=== PATIENT | male | born 1930 | race Caucasian/White ===

== ENCOUNTER → 2017-02-18 | Outpatient (CLI) | payer OTHER ==
[2017-02-18 07:44] LABS: Blood Urea Nitrogen 18 mg/dL (9-20); Non-African American GFR(MDRD) >60 (>60 ml/min/1.73 sqM)
--- NOTE | 2017-02-18 09:12 | CT ---
EXAMINATION TYPE: CT abdomen w con DATE OF EXAM: 02/18/2017 COMPARISON: NONE HISTORY: Generalized abdominal pain CT DLP: 744 mGycm, Automated Exposure Control for Dose Reduction was Utilized. CONTRAST: CT scan of the abdomen and pelvis is performed with oral and with IV Contrast, patient injected with 100 ml mL of Omnipaque 300. FINDINGS: LUNG BASES: Reticular interstitial changes bilaterally favor mild basilar fibrosis over interstitial edema. There is 6 mm calcified nodule or granuloma in the left lower lobe on axial image 4. Heart siz e is upper limits of normal. Calcifications at mitral valve are present. LIVER/GB: No significant abnormality is appreciated. PANCREAS: No significant abnormality is seen. SPLEEN: No significant abnormality is seen. ADRENALS: No significant abnormality is seen. KIDNEYS: There is 1.6 cm simple appearing exophytic cyst laterally mid pole level left kidney. There are central simple appearing parapelvic cysts in left kidney. 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 BOWEL: Oral contrast is seen throughout small and large bowel loops. There is no suspicious small or large bowel dilatation. There are scattered diverticula scattered throughout the colon most pronounce d in the visualized left colon. There is no convincing evidence of acute diverticulitis. LYMPH NODES: No greater than 1cm abdominal lymph nodes nodes are appreciated. OSSEOUS STRUCTURES: No significant abnormality is seen. OTHER: Multilevel spurring in the spine is present. There is vacuum disc phenomenon with disc space n arrowing and spurring L4-L5 level. Multilevel vacuum disc phenomenon and disc space narrowing is pres ent. Facet arthropathy contributes to multilevel disc space narrowing. Multilevel spinous process hyp ertrophy is seen with subchondral cystic change at articulations. cannot be excluded. IMPRESSION: 1. No bowel obstruction is seen. Colonic diverticulosis without CT evidence for acute diverticulitis. No significant acute finding is seen to account for patient's symptoms. 2. 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 Complete duplication is not excluded. 3. Other chronic findings as detailed above, Baastrup's disease cannot be excluded.
== END ==
LOC: RADCTMAIN 06:48
PROVIDERS: ATTEND Family Medicine
DX: R10.84 Generalized abdominal pain (principal)
CPT/HCPCS: 82565; 84520; 74160; 36415; Q9967

== ENCOUNTER → 2017-03-22 | Outpatient (CLI) | payer MEDICARE ==
--- NOTE | 2017-03-22 11:44 | FL ---
EXAMINATION TYPE: FL barium swallow w video DATE OF EXAM: 03/22/2017 COMPARISON: NONE HISTORY: Food getting stuck, dysphasia TECHNIQUE: Fluoroscopy. FINDINGS: Fluoroscopic guidance was provided for the procedure performed in conjunction with the [facility] pathology department. Please see complete report forthcoming from the Speech Pathology departmen t. Various consistencies from thin liquid to solids were administered. Fluoroscopy time 2.2 minutes. Number of images: 0. No aspiration or penetration was evident. No significant pooling was observed in the vallecula. There was normal propulsion of the bolus. Limited esophagus visualization with thin liquids was performed with real-time observation. 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 Obvious stenosis is not evident. This portion of the examination i s limited. IMPRESSION: 1. Normal modified barium swallow. 2. Findings suggestive for presbyesophagus. Complete esophagram can be performed at the referring y sician's request.
== END | disposition home or self-care (01) ==
LOC: RADFLMAIN 10:41
PROVIDERS: ATTEND Internal Medicine
DX: R13.10 Dysphagia, unspecified (principal)
CPT/HCPCS: 74230

== ENCOUNTER → 2017-04-18 | Outpatient (CLI) | payer MEDICARE, OTHER ==
[2017-04-18 15:48] LABS: ALT 27 U/L (21-72); AST 27 U/L (17-59); Alkaline Phosphatase 70 U/L (38-126); Anion Gap 6 mmol/L; Blood Urea Nitrogen 24 mg/dL (9-20); Calcium 9.2 mg/dL (8.4-10.2); Carbon Dioxide 27 mmol/L (22-30); Chloride 104 mmol/L (98-107); Glucose 142 mg/dL (74-99); Non-African American GFR(MDRD) >60 (>60 ml/min/1.73 sqM); Potassium 4.2 mmol/L (3.5-5.1); Sodium 137 mmol/L (137-145); Total Bilirubin 0.5 mg/dL (0.2-1.3); Total Protein 6.2 g/dL (6.3-8.2)
== END | disposition home or self-care (01) ==
LOC: LABWHC1 14:51
PROVIDERS: ATTEND Internal Medicine Interventional Cardiology
DX: R06.02 Shortness of breath (principal); I35.0 Nonrheumatic aortic (valve) stenosis
CPT/HCPCS: 36415; 80053; 83880

== ENCOUNTER → 2018-03-17 | Outpatient (CLI) | payer MEDICARE ==
--- NOTE | 2018-03-17 08:20 | CT ---
EXAMINATION TYPE: CT abdomen w con DATE OF EXAM: 03/17/2018 COMPARISON: 02/18/2017 HISTORY: Epigastric pain CT DLP: 433.40 mGycm Automated exposure control for dose reduction was used. TECHNIQUE: Helical acquisition of images was performed from the lung bases through the top of iliac crest to include entire abdomen. CONTRAST: Performed with Oral Contrast and with IV Contrast, patient injected with 100 ml mL of Isovue 300. FINDINGS: LUNG BASES: Stable basilar fibrosis and granulomatous disease. Focal infiltrate medial segment right middle lobe. Small right-sided pleural effusion identified. LIVER/GB: No significant abnormality is appreciated. PANCREAS: No significant abnormality is seen. SPLEEN: No significant abnormality is seen. ADRENALS: No significant abnormality is seen. KIDNEYS: Partially duplicated left renal collecting system. No evidence for hydronephrosis or nephrol ithiasis. No distinct renal mass appreciated. BOWEL: Small sliding-type hiatal hernia detected. Wall thickening gastric fundal region. Consider di rect visualization if felt indicated. Remainder of the gastrointestinal tract as visualized appears t o be of normal caliber. No inflammatory process seen. LYMPH NODES: No significant abnormality is seen. OSSEOUS STRUCTURES: Degenerative changes lumbar spine. FREE AIR: No free air is visualized. OTHER: IMPRESSION: 1. Possible wall thickening at the GE junction/gastric fundus. This could be related to poor distenti on versus retained debris however infiltrative process is difficult to exclude. Consider direct visua lization if felt clinically indicated. 2. Small sliding-type hiatal hernia. 3. Basilar fibrosis. Infiltrate right middle lobe medial segment. Small right-sided pleural effusion.
== END | disposition home or self-care (01) ==
LOC: RADCTMAIN 06:23
PROVIDERS: ATTEND Surgery
DX: K44.9 Diaphragmatic hernia without obstruction or gangrene (principal)
CPT/HCPCS: 82565; 84520; 74160; 36415; Q9967

== ENCOUNTER → 2018-12-08 | Outpatient (CLI) | payer MEDICARE ==
[2018-12-08 10:23] LABS: HCT 41.5 % (39.0-53.0); MCH 31.8 pg (25.0-35.0); MCHC 33.7 g/dL (31.0-37.0); MCV 94.5 fL (80.0-100.0); Mean Platelet Volume 7.2; Platelet Count 235 k/uL (150-450); RBC 4.39 m/uL (4.30-5.90); RDW 13.1 % (11.5-15.5); WBC 8.5 k/uL (3.8-10.6)
[2018-12-08 17:30] LABS: Albumin 3.9 g/dL (3.80-4.90); Albumin/Globulin Ratio 1.95 (1.60-3.17); Anion Gap 5.7 mmol/L (4.00-12.00); Calcium 9.1 mg/dL (8.7-10.3); Carbon Dioxide 27.3 mmol/L (21.6-31.8); Potassium 4.9 mmol/L (3.5-5.5); Total Bilirubin 0.6 mg/dL (0.2-1.2); Total Protein 5.9 g/dL (6.2-8.2)
== END | disposition home or self-care (01) ==
LOC: LABWHC1 09:38
PROVIDERS: ATTEND Nurse Practitioner Adult Health
DX: I35.0 Nonrheumatic aortic (valve) stenosis (principal); R06.02 Shortness of breath
CPT/HCPCS: 36415; 80053; 83880; 85027

== ENCOUNTER 2019-08-10 06:30 | Day surgery (SDC) | payer MEDICARE ==
[2019-08-10] MEDS ORDERED: LIDOCAINE 1% 20 ML VIAL (10MG/ML) FOR IV START INTRADERMA ONE (08:37)
[2019-08-10] MEDS ORDERED: LACTATED RINGERS 1,000 ML IV ONE (08:37)
[2019-08-10 08:40] VITALS: TEMP 97.3
[2019-08-10] MEDS ORDERED: ONDANSETRON 4 MG/2 ML VIAL IVP ONE (08:46)
[2019-08-10] MEDS ORDERED: LIDOCAINE 2% INJ 20 MG/ML SQ ONE (08:56)
[2019-08-10] MEDS ORDERED: BUPIVACAINE (PF) 0.5% 30 ML VIAL SQ ONE (08:56)
[2019-08-10] MEDS ORDERED: PROPOFOL 10 MG/ML 20 ML VIAL IV ONE (09:00)
[2019-08-10] MEDS ORDERED: LIDOCAINE 1% INJ 10MG/ML (20 ML MDV) ONE (09:00)
[2019-08-10] MEDS ORDERED: fentaNYL (PF) 50 MCG/ML 2 ML AMP ONE (09:00)
[2019-08-10] MEDS ORDERED: MIDAZOLAM 2 MG/2 ML VIAL ONE (09:00)
[2019-08-10] MEDS ORDERED: LIDOCAINE 1% 20 ML VIAL (10MG/ML) FOR IV START INTRADERMA PRN (09:20)
[2019-08-10] MEDS ORDERED: fentaNYL (PF) 50 MCG/ML 2 ML AMP IV PRN (09:20)
[2019-08-10] MEDS ORDERED: LACTATED RINGERS 1,000 ML IV SCH (09:20)
[2019-08-10] MEDS ORDERED: MIDAZOLAM 2 MG/2 ML VIAL IV PRN (09:20)
[2019-08-10 09:40] VITALS: BP 101/67; PULSE 79; RESP 16
--- NOTE | 2019-08-20 05:55 | OP ---
OPERATIVE REPORT DATE OF SURGERY: 08/10/2019 SURGEON: You Anderson DO PREOPERATIVE DIAGNOSIS: Left carpal tunnel syndrome. POSTOPERATIVE DIAGNOSIS: Left carpal tunnel syndrome. PROCEDURE: Carpal tunnel release. DESCRIPTION OF PROCEDURE: The patient was taken to the operative suite where a sedation was administered by the department of anesthesia. I then performed a local injection along the line of the incision with a combination of Marcaine and Xylocaine both without epinephrine. The hand was then prepped and draped in the usual manner. The arm was elevated, exsanguinated and the cuff was inflated to 250 mm of mercury. A longitudinal incision was made along the ring finger ray distal to the wrist crease. Dissection was taken through the skin and subcutaneous tissue, initially sharp through the skin and then blunt through the subcutaneous tissue to ensure protection of any potential terminal transverse branches of the palmar cutaneous nerve. The palmar fascia was then incised under direct vision longitudinally exposing the transverse carpal ligament. The transverse carpal ligament also was incised under direct vision. The dissection was then continued proximally beneath the skin under direct vision to release the distal forearm fascia. The median nerve was then reflected free of tenosynovium to ensure no adhesions. The tourniquet was then released. The wound was then irrigated and the skin was closed with a running 5-0 nylon suture. A soft bulky dressing was applied including a volar plaster splint holding the wrist in a neutral slightly extended position. The patient was then taken to the recovery room in satisfactory condition. MMODL / IJN: [id number] /
== END 2019-08-10 10:03 | disposition home or self-care (01) ==
LOC: OR 06:30
PROVIDERS: ATTEND Orthopaedic Surgery Hand Surgery
DX: G56.03 Carpal tunnel syndrome, bilateral upper limbs (principal); M19.042 Primary osteoarthritis, left hand; N40.0 Benign prostatic hyperplasia without lower urinary tract symptoms; F32.9 Major depressive disorder, single episode, unspecified; H91.90 Unspecified hearing loss, unspecified ear; Z79.82 Long term (current) use of aspirin; Z79.899 Other long term (current) drug therapy; Z96.651 Presence of right artificial knee joint; Z79.1 Long term (current) use of non-steroidal anti-inflammatories (NSAID); Z97.3 Presence of spectacles and contact lenses; Z90.49 Acquired absence of other specified parts of digestive tract; Z98.890 Other specified postprocedural states
CPT/HCPCS: 64721; J2001 ×2; J2250; J0690; J2405; J3010; J2704

== ENCOUNTER 2019-09-15 06:06 | Day surgery (SDC) | payer MEDICARE ==
[2019-09-11 10:28] VITALS: BMI 24.3
[2019-09-15 06:42] VITALS: RESP 16; TEMP 97.8
[2019-09-15] MEDS ORDERED: SODIUM CHLORIDE 0.9% 500 ML 500 ML IV ONE (06:42)
[2019-09-15] MEDS ORDERED: fentaNYL (PF) 50 MCG/ML 2 ML AMP ONE (07:05)
[2019-09-15] MEDS ORDERED: BENZOCAINE SPRAY 1 CAN MUCOUS MEM ONE (07:15)
[2019-09-15] MEDS ORDERED: fentaNYL (PF) 50 MCG/ML 2 ML AMP IV ONE (07:16)
[2019-09-15] MEDS: MIDAZOLAM 2 MG/2 ML VIAL IV ONE ×2 (07:16→07:18)
[2019-09-15] MEDS ORDERED: MIDAZOLAM 2 MG/2 ML VIAL IV ONE (07:22)
[2019-09-15] MEDS ORDERED: SODIUM CHLORIDE 0.9% 1,000 ML IV SCH (08:00)
--- NOTE | 2019-09-15 08:16 | ECHOT ---
TRANSESOPHAGEAL ECHOCARDIOGRAM INDICATION: Evaluation of aortic valve. PROCEDURE: After explaining the procedure to the patient, its risks and the complications, his blood pressure, heart rate, O2 saturation was monitored. He received 3 mg intravenous Versed, 50 mcg intravenous fentanyl. The probe was introduced in the esophagus without difficulties. Images were obtained. Following that, the probe was removed. FINDINGS: Left atrial size is mildly dilated. Left atrial appendage is normal. Left ventricular size and systolic function normal. Concentric left ventricular hypertrophy is noted. The aortic valve is a tricuspid valve with severe calcification, reduced opening. By planimetry, the valve area is 0.3 centimeter square. The mitral valve appears to be normal. Tricuspid valve is normal. No pericardial effusion was noted. Contrast bubble study revealed no shunting across the interatrial septum. The descending thoracic aorta appears to be normal. Doppler pulse wave and color Doppler obtained and revealed mild mitral, aortic and tricuspid regurgitation with mild to moderate pulmonic regurgitation. The peak gradient across the aortic valve was 46 mmHg with a mean of 32 mmHg. There was no shunting by color Doppler study. CONCLUSION: 1. Mildly dilated left atrium. 2. Normal left ventricular size and systolic function with concentric left ventricular hypertrophy. 3. Moderate to severe aortic stenosis with a tricuspid heavily calcified valve. 4. Mild mitral, aortic and tricuspid regurgitation with [id number] pulmonic regurgitation. 5. No shunting across the interatrial septum. MMODL / IJN: [id number] /
[2019-09-15 08:38] VITALS: BP 103/62; PULSE 75
[2019-09-15] MEDS ORDERED: [UNRECOGNIZED DRUG - OTHER] PO SCH (09:00)
[2019-09-15] MEDS ORDERED: TAMSULOSIN 0.4 MG CAP.ER.24H PO SCH (09:00)
[2019-09-15] MEDS ORDERED: PARoxetine 10 MG TAB PO SCH (09:00)
[2019-09-15] MEDS ORDERED: NON FORMULARY DRUG (Aspirin [Adult Low Dose Aspirin Ec] 81 MG) PO SCH (09:00)
[2019-09-15] MEDS ORDERED: FUROSEMIDE 20 MG TAB PO SCH (09:00)
[2019-09-15] MEDS ORDERED: ISOSORBIDE MONONITRATE ER 30 MG TAB.ER.24H PO SCH (09:00)
[2019-09-15] MEDS ORDERED: NON FORMULARY DRUG (Mirabegron [Myrbetriq] 50 MG) PO SCH (09:00)
[2019-09-15] MEDS ORDERED: LUTEIN PO SCH (09:00)
[2019-09-15] MEDS ORDERED: LYCOPEN PO SCH (09:00)
[2019-09-15] MEDS ORDERED: MULTIVIT MIN PO SCH (09:00)
== END 2019-09-15 08:42 | disposition home or self-care (01) ==
LOC: CATHCVL 06:06
PROVIDERS: ATTEND Internal Medicine Interventional Cardiology
DX: I08.3 Combined rheumatic disorders of mitral, aortic and tricuspid valves (principal); Z79.82 Long term (current) use of aspirin; Z79.899 Other long term (current) drug therapy
CPT/HCPCS: 93312; 93320; 93325; J2250; J3010

== ENCOUNTER → 2019-09-23 | Outpatient (CLI) | payer MEDICARE ==
[2019-09-23 11:11] LABS: HCT 42.9 % (39.0-53.0); HGB 14.1 gm/dL (13.0-17.5); MCH 31.2 pg (25.0-35.0); MCHC 32.8 g/dL (31.0-37.0); MCV 95.2 fL (80.0-100.0); Mean Platelet Volume 8.2; Platelet Count 207 k/uL (150-450); RDW 12.8 % (11.5-15.5); WBC 8.5 k/uL (3.8-10.6)
[2019-09-23 11:17] LABS: Potassium 4.8 mmol/L (3.5-5.1)
== END | disposition home or self-care (01) ==
LOC: LABPAT 09:55
PROVIDERS: ATTEND Internal Medicine Interventional Cardiology
DX: Z01.812 Encounter for preprocedural laboratory examination (principal); I35.0 Nonrheumatic aortic (valve) stenosis
CPT/HCPCS: 36415; 80051; 82565; 84520; 85027

== ENCOUNTER → 2019-10-06 | Day surgery (SDC) | payer MEDICARE ==
[2019-10-01 14:14] VITALS: BMI 24.3
[~2019-10-06] MED LIST: ALPRAZolam 0.25 MG TAB PO PRN; ALPRAZolam 0.5 MG TAB PO PRN; ASPIRIN 325 MG TAB PO ONE; ASPIRIN 81 MG PO SCH; ATORVASTATIN 80 MG TAB PO ONE; HEPARIN SODIUM 1,000 UN/ML (10ML VL) IV ONE; HEPARIN SODIUM 1,000 UN/ML (10ML VL) ONE; IOPAMIDOL-370 125ML BTL INJ ONE; ISOSORBIDE MONONITRATE ER 30 MG TAB.ER.24H PO SCH; LIDOCAINE 1% INJ 10MG/ML (20 ML MDV) ONE; LIDOCAINE 1% INJ 10MG/ML (20 ML MDV) SQ ONE; MIDAZOLAM 2 MG/2 ML VIAL IVP ONE; MULTIVITAMINS, THERA 1 EACH TAB PO SCH; NITROGLYCERIN SL TABS 0.4 MG TAB SUBLINGUAL PRN; PARoxetine 10 MG TAB PO SCH; RX INFO: IV CONTRAST WAS GIVEN 1 EACH MISC MISCELLANE PRN; SODIUM CHLORIDE 0.9% 1,000 ML IV SCH; SODIUM CHLORIDE 0.9% 1,000 ML in EMPTY BAG 1 BAG IV ONE; TAMSULOSIN 0.4 MG CAP.ER.24H PO SCH; VERAPAMIL 2.5 MG/ML 2 ML AMP ONE; VERAPAMIL SYRINGE (5 MG/10 ML) INTRAARTER ONE; fentaNYL (PF) 50 MCG/ML 2 ML AMP IVP ONE; fentaNYL (PF) 50 MCG/ML 2 ML AMP ONE
[2019-10-06 08:26] VITALS: TEMP 97.7
[2019-10-06 09:09] VITALS: RESP 16
--- NOTE | 2019-10-06 10:51 | CC ---
CARDIAC CATHETERIZATION REPORT Mr. Ballesteros is an 88-year-old male with no prior documented history of obstructive coronary artery disease who has been complaining of severe progressive dyspnea. His evaluations revealed evidence of severe aortic stenosis. In view of that, recommendation made regarding cardiac catheterization. The procedures, risks, and complication were discussed with the patient who is in full understanding and agreement. PROCEDURE: Patient was brought to medical laboratory technologist in a fasting semi-sedated state after receiving fentanyl and Benadryl and achieving moderate conscious sedated state. Using Xylocaine anesthesia and the Seldinger technique, a 6-Barbadian sheath was introduced in the right radial artery. The catheter in the right brachial area was pinched over wire to 6- Barbadian sheath, attempt to advance a 6 [place] catheter through the brachial sheath were unsuccessful. That sheath was in the arterial system. At that point, selective right and left coronary angiography performed using from the brachial artery using a 5- Barbadian 3.5 bend right and left Jourdan catheter, multiple views of the coronary artery including hemiaxial views were obtained. Following that, the catheter and sheath were removed. Hemostasis was obtained with deployment of a TR band on the radial artery and compression of the right brachial artery. Of note, the patient received 3500 units of intravenous heparin. There was no immediate complication. FINDINGS: FLUOROSCOPY: There was severe calcification involving the aortic valve. LEFT MAIN: This is a short size vessel bifurcating into left circumflex, left anterior descending artery. Left main coronary artery has no evidence of high-grade stenosis. LEFT ANTERIOR DESCENDING ARTERY: This is a large-sized vessel, reaching toward the apex with a wraparound apex segment giving rise to 2 diagonal branch. The left anterior descending artery as well as branches have no evidence of obstructive coronary artery disease. LEFT CIRCUMFLEX: This is a nondominant large vessel giving rise to 3 obtuse marginal branches, the left circumflex as well as branches have no evidence of obstructive coronary artery disease. RIGHT CORONARY ARTERY: This is a large dominant vessel that has no evidence of high- grade stenosis. LEFT VENTRICULOGRAM: Left ventriculogram was not performed. CONCLUSION: 1. Normal coronary arteries. 2. Right dominant system. RECOMMENDATION: At this time, I would recommend to proceed with evaluation for possible transaortic valve replacement. Those findings and recommendation were discussed with the patient and his family and they are in full understanding and agreement. Duration of procedure is 26 minutes. MMODL / IJN: [id number] /
[2019-10-06 15:36] VITALS: PULSE 74
[2019-10-06 15:38] VITALS: BP 114/64
== END | disposition home or self-care (01) ==
LOC: CATHCVL 07:50
PROVIDERS: ATTEND Internal Medicine Interventional Cardiology
DX: I35.8 Other nonrheumatic aortic valve disorders (principal); H91.90 Unspecified hearing loss, unspecified ear; R35.1 Nocturia; M25.50 Pain in unspecified joint; Z79.82 Long term (current) use of aspirin; Z79.899 Other long term (current) drug therapy
CPT/HCPCS: 93454; C1769; C1894; J2250; J2001; J3010; J1644; Q9967

== ENCOUNTER → 2019-11-09 | Outpatient (CLI) | payer MEDICARE ==
[2019-11-09 09:08] LABS: HCT 44.2 % (39.0-53.0); HGB 14.7 gm/dL (13.0-17.5); MCH 31.8 pg (25.0-35.0); MCHC 33.2 g/dL (31.0-37.0); MCV 95.9 fL (80.0-100.0); Mean Platelet Volume 8.3; Platelet Count 213 k/uL (150-450); RBC 4.61 m/uL (4.30-5.90); RDW 12.8 % (11.5-15.5); WBC 7.3 k/uL (3.8-10.6)
[2019-11-09 15:37] LABS: African American GFR (CKD) 70.1 (60.0-200.0); Albumin 4.1 g/dL (3.80-4.90); Albumin/Globulin Ratio 1.64 (1.60-3.17); Anion Gap 8.1 mmol/L (4.00-12.00); BUN/Creat Ratio 24.55 Ratio (12.00-20.00); Calcium 9.6 mg/dL (8.7-10.3); Carbon Dioxide 27.9 mmol/L (21.6-31.8); Globulin 2.5 g/dL (1.6-3.3); Non-African American GFR(CKD) 60.5 (60.0-200.0); Potassium 4.9 mmol/L (3.5-5.5); Total Bilirubin 0.6 mg/dL (0.2-1.2); Total Protein 6.6 g/dL (6.2-8.2)
== END | disposition home or self-care (01) ==
LOC: LABWHC1 08:03
PROVIDERS: ATTEND Student in an Organized Health Care Education/Training Program
DX: R06.02 Shortness of breath (principal)
CPT/HCPCS: 36415; 80053; 83880; 85027

== ENCOUNTER → 2021-01-25 | Outpatient (CLI) | payer OTHER ==
--- NOTE | 2021-01-25 16:42 | CT ---
EXAMINATION TYPE: CT chest wo con DATE OF EXAM: 01/25/2021 COMPARISON: 03/17/2018 CT abdomen HISTORY: Prior abn CT CT DLP: 249.5 mGycm, Automated exposure control for dose reduction was used. CONTRAST: Performed injected with 0 mL of Isovue 300. TECHNIQUE: Axial images were obtained at 5 mm thick sections. Reconstructed images are reviewed on [employer] computer in the coronal plane. FINDINGS: Portion of the thyroid visualized is normal. No suspicious lung nodules or focal infiltrates are present. There is a 0.7 cm calcification at the l eft inferior lung base compatible with a calcified granuloma. This was present previously small bilat eral pleural effusions are present. Bilateral apical scarring is likely present. No enlarged mediastinal or hilar adenopathy is evident. Calcified lymph node may be in the left hil ar region. The ascending aorta diameter at the level of the main pulmonary artery is 3.7 cm. The shani n pulmonary artery diameter at the bifurcation is 2.[address] sections are obtained through the upper abdomen. Abdomen is essentially unremarkable. IMPRESSIONS: 1. Small bilateral pleural effusions. 2. Calcified granuloma left lung base, stable.
== END | disposition home or self-care (01) ==
LOC: RADCTMAIN 08:43
DX: J90 Pleural effusion, not elsewhere classified (principal); J84.10 Pulmonary fibrosis, unspecified; R93.89 Abnormal findings on diagnostic imaging of other specified body structures
CPT/HCPCS: 71250

== ENCOUNTER → 2021-02-16 | Outpatient (CLI) | payer MEDICARE ==
[2021-02-16 19:19] LABS: HCT 42.7 % (39.6-50.0); HGB 14.4 g/dL (13.0-17.0); MCH 31.6 pg (27.0-32.0); MCHC 33.7 g/dL (32.0-37.0); MCV 93.8 fL (80.0-97.0); Mean Platelet Volume 11.8 fL (9.5-12.2); Platelet Count 110 X 10*3/uL (140-440); RBC 4.55 X 10*6/uL (4.40-5.60); RDW 12.1 % (11.5-14.5); WBC 7.02 X 10*3/uL (4.50-10.00)
[2021-02-17 03:35] LABS: African American GFR (CKD) 77.5 (60.0-200.0); Albumin/Globulin Ratio 1.54 (1.60-3.17); Anion Gap 10.1 mmol/L (4.00-12.00); Calcium 9.2 mg/dL (8.7-10.3); Carbon Dioxide 24.9 mmol/L (21.6-31.8); Globulin 2.6 g/dL (1.6-3.3); Non-African American GFR(CKD) 66.9 (60.0-200.0); Potassium 4.9 mmol/L (3.5-5.5); Total Bilirubin 0.6 mg/dL (0.2-1.2); Total Protein 6.6 g/dL (6.2-8.2)
== END | disposition home or self-care (01) ==
LOC: LABWHC1 11:16
PROVIDERS: ATTEND Internal Medicine Interventional Cardiology
DX: I48.11 Longstanding persistent atrial fibrillation (principal)
CPT/HCPCS: 36415; 80053; 84443; 85027

== ENCOUNTER → 2021-09-12 | Outpatient (CLI) | payer MEDICARE ==
[2021-09-12 18:25] LABS: African American GFR (CKD) 68.4 (60.0-200.0); Anion Gap 10.3 mmol/L (10.00-18.00); BUN/Creat Ratio 19.37 Ratio (12.00-20.00); Blood Urea Nitrogen 21.5 mg/dL (9.0-27.0); Calcium 9.4 mg/dL (8.7-10.3); Carbon Dioxide 28.8 mmol/L (20.0-27.5); Potassium 4.6 mmol/L (3.5-5.5)
[2021-09-12 18:31] LABS: HCT 45.3 % (39.6-50.0); HGB 15.2 g/dL (13.0-17.0); MCHC 33.6 g/dL (32.0-37.0); MCV 95.4 fL (80.0-97.0); Mean Platelet Volume 10.8 fL (9.5-12.2); NRBC Per 100 WBC 0 /100 WBCS (0.0-0.0); Platelet Count 168 X 10*3/uL (140-440); RBC 4.75 X 10*6/uL (4.40-5.60); RDW 12.5 % (11.5-14.5); WBC 7.89 X 10*3/uL (4.50-10.00)
== END | disposition home or self-care (01) ==
LOC: LABWHC1 09:45
PROVIDERS: ATTEND Nurse Practitioner Adult Health
DX: I48.0 Paroxysmal atrial fibrillation (principal); R60.0 Localized edema
CPT/HCPCS: 36415; 80048; 83880; 85027

== ENCOUNTER 2022-02-27 16:58 | Inpatient (IN) | payer MEDICARE ==
--- NOTE | 2022-02-27 17:46 | XR ---
EXAMINATION TYPE: XR chest 2V DATE OF EXAM: 02/27/2022 5:34 PM COMPARISON: Chest radiographs from 01/16/2016 TECHNIQUE: XR chest 2V Frontal and lateral views of the chest. CLINICAL INDICATION:Male, 89 years old with history of confusion; FINDINGS: Lungs/Pleura: New hazy opacity within the right lower lung. There is flattening of the diaphragm with increased lucency of the lungs. No evidence of pneumothorax, pleural effusion or focal consolidation . Pulmonary vascularity: Unremarkable. Heart/mediastinum: Cardiomediastinal silhouette is unremarkable. Valvular repair changes in the aorta . Musculoskeletal: Degenerative changes of the shoulder joints. IMPRESSION: 1. Hazy opacity in the right lower lung which may represent developing airspace disease. Clinical co rrelation advised. 2. COPD changes.
[2022-02-27 19:01] LABS: Appearance,Urine Clear (Clear); Bilirubin,Urine Negative (Negative); Blood,Urine Negative (Negative); Color,Urine Yellow; Glucose,Urine (UA) Negative (Negative); Ketones,Urine Negative (Negative); Leukocyte Esterase,Urine Negative (Negative); Nitrite,Urine Negative (Negative); Protein,Urine Negative (Negative); Specific Gravity,Urine 1.011 (1.001-1.035); Urobilinogen,Urine <2.0 mg/dL (<2.0)
[2022-02-27 20:06] LABS: Basophils # (A) 0.1 k/uL (0-0.2); Basophils % (A) 1 %; Eosinophils # (A) 0.1 k/uL (0-0.7); Eosinophils % (A) 2 %; HCT 43.2 % (39.0-53.0); Lymphocytes # (A) 1.7 k/uL (1.0-4.8); Lymphocytes % (A) 23 %; MCH 33.1 pg (25.0-35.0); MCHC 34.7 g/dL (31.0-37.0); MCV 95.4 fL (80.0-100.0); Mean Platelet Volume 7.7; Monocytes # (A) 0.7 k/uL (0-1.0); Monocytes % (A) 9 %; Neutrophils # (A) 4.6 k/uL (1.3-7.7); Neutrophils % (A) 62 %; Platelet Count 222 k/uL (150-450); RBC 4.53 m/uL (4.30-5.90); RDW 12.9 % (11.5-15.5); WBC 7.5 k/uL (3.8-10.6)
[2022-02-27 20:23] LABS: Amphetamine Screen,Urine Not Detected (NotDetected); Barbiturate Screen,Urine Not Detected (NotDetected); Benzodiazepines Screen,Urine Not Detected (NotDetected); Cocaine Screen,Urine Not Detected (NotDetected); Methadone Screen, Urine Not Detected (NotDetected); Opiate Screen,Urine Not Detected (NotDetected); Oxycodone Screen, Urine Not Detected (NotDetected); Phencyclidine Screen,Urine Not Detected (NotDetected); Tricyclic Antidepressant,Urine Not Detected (NotDetected); Urn Cannabinoid Scrn Not Detected (NotDetected)
[2022-02-27 20:37] LABS: Albumin 4.4 g/dL (3.5-5.0); Calcium 9.4 mg/dL (8.4-10.2); Potassium 4.3 mmol/L (3.5-5.1); Total Bilirubin 0.9 mg/dL (0.2-1.3); Total Protein 7.5 g/dL (6.3-8.2)
--- NOTE | 2022-02-27 20:41 | CT ---
EXAMINATION TYPE: CT brain wo con CT DLP: 1137.4 mGycm, Automated exposure control for dose reduction was used. DATE OF EXAM: 02/27/2022 8:34 PM COMPARISON: None CLINICAL INDICATION:Male, 89 years old with history of Altered mental status, TECHNIQUE: Brain: Axial CT images of the brain were obtained with coronal and sagittal reformats created and rev iewed. Contrast used: None. Oral contrast used: None. FINDINGS: Brain: Extra-axial spaces: No abnormal extra-axial fluid collections. Ventricular system: Dilatation in proportion to cerebral atrophy. Cerebral parenchyma: Cerebral atrophy. No acute intraparenchymal hemorrhage or mass effect. The russ -white junction is well differentiated. Cerebellum: Unremarkable. Mass effect: No evidence of midline shift. Intracranial vasculature: Atherosclerotic calcifications of the intracranial vessels. Soft tissues: Normal. Calvarium/osseous structures: No depressed skull fracture. Paranasal sinuses and mastoid air cells: Mild scattered paranasal sinus disease. Visualized orbits: Right aphakia IMPRESSION: No acute intracranial process.
[2022-02-27] MEDS ORDERED: SODIUM CHLORIDE 0.9% 1,000 ML IV ONE (21:09)
--- NOTE | 2022-02-27 21:13 | ED ---
Altered Mental Status HPI - General Chief Complaint: Altered Mental Status Stated Complaint: altered, trouble sleeping Time Seen by Provider: 02/27/22 19:30 Source: patient, family Mode of arrival: wheelchair Limitations: no limitations - History of Present Illness Initial Comments: 89-year-old male with past history of aortic valve replacement, peripheral edema presents to the emergency department with confusion. Daughter is at bedside and helps provide history. States that for the past 2 nights the patient has not been sleeping, hallucinating and confused. He saw a praying mantis in their house. She reports that he let 3 gentlemen out of the closet because they were trapped in there. Also he thought that he was on an airplane ride with his daughter. Daughter states that this is not normal behavior for him. He is normally a and O 3. He is on Coumadin. He did have a fall yesterday however confusion started before the fall. She denies that he hit his head. He has had some recent medication changes. He was on 60 mg of Lasix daily. Primary care physician decreased him to 40 mg a day and started him on metalazone days ago he has he had low sodium levels when it was checked in office a few weeks ago. They called to tell the primary care that he was hallucinating. He was told to go off of his Zoloft and therefore his last dose was yesterday. He has been on this medication for 5 months without any issue with the medication. His Coumadin was checked yesterday and was within a normal level. He denies any pain including chest pain or shortness of breath. No abdominal pain. Patient is aware of his abnormal behavior. No other alleviating, precipitating or modifying factors - Related Data Home Medications Medication Instructions Recorded Confirmed Tamsulosin [Flomax] 0.4 mg PO BID 03/27/18 02/27/22 Mirabegron [Myrbetriq] 50 mg PO DAILY 07/31/19 02/28/22 Furosemide [Lasix] 40 mg PO DAILY 02/27/22 02/27/22 Warfarin Sodium 5 mg PO MOWEFR 02/27/22 02/27/22 Warfarin Sodium 5 mg PO SUTUTHSA 02/27/22 02/27/22 metOLazone 2.5 mg PO MOWEFR 02/27/22 02/27/22 Allergies Allergy/AdvReac Type Severity Reaction Status Date / Time No Known Allergies Allergy Verified 02/27/22 21:13 Review of Systems ROS Statement: Those systems with pertinent positive or pertinent negative responses have been documented in the HPI. ROS Other: All systems not noted in ROS Statement are negative. Past Medical History Past Medical History: GERD/Reflux, Osteoarthritis (OA), Prostate Disorder Additional Past Medical History / Comment(s): "two Leaky heart valves", valve replacement History of Any Multi-Drug Resistant Organisms: None Reported Past Surgical History: Cholecystectomy, Joint Replacement, Orthopedic Surgery Additional Past Surgical History / Comment(s): valve replacement, Rt Knee replacement; Colonoscopy, left carpal tunnel, rt cataract,JULIO C 09/15/19 Past Anesthesia/Blood Transfusion Reactions: No Reported Reaction Past Psychological History: No Psychological Hx Reported Past Alcohol Use History: Rare Past Drug Use History: None Reported - Past Family History Father Family Medical History: Cancer Additional Family Medical History / Comment(s): stomach cancer Mother Family Medical History: Congestive Heart Failure (CHF) Sister(s) Family Medical History: Congestive Heart Failure (CHF) General Exam Limitations: no limitations General appearance: alert, in no apparent distress Head exam: Present: atraumatic, normocephalic, normal inspection Eye exam: Present: normal appearance, PERRL, EOMI. Absent: scleral icterus, conjunctival injection, periorbital swelling ENT exam: Present: normal exam, mucous membranes moist Neck exam: Present: normal inspection. Absent: tenderness, meningismus, lymphadenopathy Respiratory exam: Present: normal lung sounds bilaterally. Absent: respiratory distress, wheezes, rales, rhonchi, stridor Cardiovascular Exam: Present: regular rate, normal rhythm, normal heart sounds. Absent: systolic murmur, diastolic murmur, rubs, gallop, clicks GI/Abdominal exam: Present: soft, normal bowel sounds. Absent: distended, tenderness, guarding, rebound, rigid Extremities exam: Present: full ROM, normal capillary refill, pedal edema. Absent: tenderness, joint swelling, calf tenderness Back exam: Present: normal inspection Neurological exam: Present: alert, oriented X3, CN II-XII intact Psychiatric exam: Present: normal affect, normal mood Skin exam: Present: warm, dry, intact, normal color. Absent: rash Course Vital Signs 02/27/22 02/27/22 02/27/22 17:19 20:11 21:44 Temperature 97.8 F Pulse Rate 55 L 78 75 Respiratory 18 16 Rate Blood Pressure 131/84 142/100 131/85 O2 Sat by Pulse 98 Oximetry Medical Decision Making - Medical Decision Making Upon arrival patient was placed in room 9. Her history and physical exam was performed. IV access established laboratory studies were conducted. INR is 3. Sodium 122. Troponin 0.147. CT of the brain demonstrates no acute process. Results are discussed the patient. Recommended admission for hyponatremia. Urine studies and osmolality pending at this time. We will consult nephrology for hyponatremia. Spoke with Barb who agreed to admit the patient. - Lab Data Result diagrams: 02/28/22 08:41 03/01/22 06:22 Lab Results 02/27/22 02/27/22 02/27/22 Range/Units 18:54 18:54 19:56 WBC 7.5 (3.8-10.6) k/uL RBC 4.53 (4.30-5.90) m/uL Hgb 15.0 (13.0-17.5) gm/dL Hct 43.2 (39.0-53.0) % MCV 95.4 (80.0-100.0) fL MCH 33.1 (25.0-35.0) pg MCHC 34.7 (31.0-37.0) g/dL RDW 12.9 (11.5-15.5) % Plt Count 222 (150-450) k/uL MPV 7.7 Neutrophils % 62 % Lymphocytes % 23 % Monocytes % 9 % Eosinophils % 2 % Basophils % 1 % Neutrophils # 4.6 (1.3-7.7) k/uL Lymphocytes # 1.7 (1.0-4.8) k/uL Monocytes # 0.7 (0-1.0) k/uL Eosinophils # 0.1 (0-0.7) k/uL Basophils # 0.1 (0-0.2) k/uL PT (9.0-12.0) sec INR (<1.2) APTT (22.0-30.0) sec Sodium (137-145) mmol/L Potassium (3.5-5.1) mmol/L Chloride (98-107) mmol/L Carbon Dioxide (22-30) mmol/L Anion Gap mmol/L BUN (9-20) mg/dL Creatinine (0.66-1.25) mg/dL Est GFR (CKD-EPI)AfAm (>60 ml/min/1.73 sqM) Est GFR (CKD-EPI)NonAf (>60 ml/min/1.73 sqM) Glucose (74-99) mg/dL Calcium (8.4-10.2) mg/dL Total Bilirubin (0.2-1.3) mg/dL AST (17-59) U/L ALT (4-49) U/L Alkaline Phosphatase (38-126) U/L Ammonia (<30) umol/L Troponin I (0.000-0.034) ng/mL Total Protein (6.3-8.2) g/dL Albumin (3.5-5.0) g/dL TSH (0.465-4.680) mIU/L Urine Color Yellow Urine Appearance Clear (Clear) Urine pH 6.0 (5.0-8.0) Ur Specific [place] 1.011 (1.001-1.035) Urine Protein Negative (Negative) Urine Glucose (UA) Negative (Negative) Urine Ketones Negative (Negative) Urine Blood Negative (Negative) Urine Nitrite Negative (Negative) Urine Bilirubin Negative (Negative) Urine Urobilinogen <2.0 (<2.0) mg/dL Ur Leukocyte Esterase Negative (Negative) Urine Opiates Screen Not Detected (NotDetected) Ur Oxycodone Screen Not Detected (NotDetected) Urine Methadone Screen Not Detected (NotDetected) Ur Propoxyphene Screen Not Detected (NotDetected) Ur Barbiturates Screen Not Detected (NotDetected) U Tricyclic Antidepress Not Detected (NotDetected) Ur Phencyclidine Scrn Not Detected (NotDetected) Ur Amphetamines Screen Not Detected (NotDetected) U Methamphetamines Scrn Not Detected (NotDetected) U Benzodiazepines Scrn Not Detected (NotDetected) Urine Cocaine Screen Not Detected (NotDetected) U Marijuana (THC) Screen Not Detected (NotDetected) 02/27/22 02/27/22 02/27/22 Range/Units 19:56 19:56 19:56 WBC (3.8-10.6) k/uL RBC (4.30-5.90) m/uL Hgb (13.0-17.5) gm/dL Hct (39.0-53.0) % MCV (80.0-100.0) fL MCH (25.0-35.0) pg MCHC (31.0-37.0) g/dL RDW (11.5-15.5) % Plt Count (150-450) k/uL MPV Neutrophils % % Lymphocytes % % Monocytes % % Eosinophils % % Basophils % % Neutrophils # (1.3-7.7) k/uL Lymphocytes # (1.0-4.8) k/uL Monocytes # (0-1.0) k/uL Eosinophils # (0-0.7) k/uL Basophils # (0-0.2) k/uL PT (9.0-12.0) sec INR (<1.2) APTT (22.0-30.0) sec Sodium 122 L (137-145) mmol/L Potassium 4.3 (3.5-5.1) mmol/L Chloride 85 L (98-107) mmol/L Carbon Dioxide 29 (22-30) mmol/L Anion Gap 8 mmol/L BUN 24 H (9-20) mg/dL Creatinine 1.05 (0.66-1.25) mg/dL Est GFR (CKD-EPI)AfAm 73 (>60 ml/min/1.73 sqM) Est GFR (CKD-EPI)NonAf 63 (>60 ml/min/1.73 sqM) Glucose 96 (74-99) mg/dL Calcium 9.4 (8.4-10.2) mg/dL Total Bilirubin 0.9 (0.2-1.3) mg/dL AST 44 (17-59) U/L ALT 25 (4-49) U/L Alkaline Phosphatase 106 (38-126) U/L Ammonia <9 (<30) umol/L Troponin I 0.147 H* (0.000-0.034) ng/mL Total Protein 7.5 (6.3-8.2) g/dL Albumin 4.4 (3.5-5.0) g/dL TSH (0.465-4.680) mIU/L Urine Color Urine Appearance (Clear) Urine pH (5.0-8.0) Ur Specific [place] (1.001-1.035) Urine Protein (Negative) Urine Glucose (UA) (Negative) Urine Ketones (Negative) Urine Blood (Negative) Urine Nitrite (Negative) Urine Bilirubin (Negative) Urine Urobilinogen (<2.0) mg/dL Ur Leukocyte Esterase (Negative) Urine Opiates Screen (NotDetected) Ur Oxycodone Screen (NotDetected) Urine Methadone Screen (NotDetected) Ur Propoxyphene Screen (NotDetected) Ur Barbiturates Screen (NotDetected) U Tricyclic Antidepress (NotDetected) Ur Phencyclidine Scrn (NotDetected) Ur Amphetamines Screen (NotDetected) U Methamphetamines Scrn (NotDetected) U Benzodiazepines Scrn (NotDetected) Urine Cocaine Screen (NotDetected) U Marijuana (THC) Screen (NotDetected) 02/27/22 02/27/22 Range/Units 19:56 21:20 WBC (3.8-10.6) k/uL RBC (4.30-5.90) m/uL Hgb (13.0-17.5) gm/dL Hct (39.0-53.0) % MCV (80.0-100.0) fL MCH (25.0-35.0) pg MCHC (31.0-37.0) g/dL RDW (11.5-15.5) % Plt Count (150-450) k/uL MPV Neutrophils % % Lymphocytes % % Monocytes % % Eosinophils % % Basophils % % Neutrophils # (1.3-7.7) k/uL Lymphocytes # (1.0-4.8) k/uL Monocytes # (0-1.0) k/uL Eosinophils # (0-0.7) k/uL Basophils # (0-0.2) k/uL PT 29.5 H (9.0-12.0) sec INR 3.0 H (<1.2) APTT 44.0 H (22.0-30.0) sec Sodium (137-145) mmol/L Potassium (3.5-5.1) mmol/L Chloride (98-107) mmol/L Carbon Dioxide (22-30) mmol/L Anion Gap mmol/L BUN (9-20) mg/dL Creatinine (0.66-1.25) mg/dL Est GFR (CKD-EPI)AfAm (>60 ml/min/1.73 sqM) Est GFR (CKD-EPI)NonAf (>60 ml/min/1.73 sqM) Glucose (74-99) mg/dL Calcium (8.4-10.2) mg/dL Total Bilirubin (0.2-1.3) mg/dL AST (17-59) U/L ALT (4-49) U/L Alkaline Phosphatase (38-126) U/L Ammonia (<30) umol/L Troponin I (0.000-0.034) ng/mL Total Protein (6.3-8.2) g/dL Albumin (3.5-5.0) g/dL TSH 3.140 (0.465-4.680) mIU/L Urine Color Urine Appearance (Clear) Urine pH (5.0-8.0) Ur Specific [place] (1.001-1.035) Urine Protein (Negative) Urine Glucose (UA) (Negative) Urine Ketones (Negative) Urine Blood (Negative) Urine Nitrite (Negative) Urine Bilirubin (Negative) Urine Urobilinogen (<2.0) mg/dL Ur Leukocyte Esterase (Negative) Urine Opiates Screen (NotDetected) Ur Oxycodone Screen (NotDetected) Urine Methadone Screen (NotDetected) Ur Propoxyphene Screen (NotDetected) Ur Barbiturates Screen (NotDetected) U Tricyclic Antidepress (NotDetected) Ur Phencyclidine Scrn (NotDetected) Ur Amphetamines Screen (NotDetected) U Methamphetamines Scrn (NotDetected) U Benzodiazepines Scrn (NotDetected) Urine Cocaine Screen (NotDetected) U Marijuana (THC) Screen (NotDetected) - EKG Data EKG Comments: EKG demonstrates A. fib with a rate of 84. QRS 112. QTC of 447. No acute ST segment elevations or depressions. Disposition Clinical Impression: Hallucinations, visual, Hyponatremia Disposition: ADMITTED IP TO THIS [facility] Condition: Stable Is patient prescribed a controlled substance at d/c from ED?: No Time of Disposition: 21:34 Decision to Admit Reason: Admit from EC Decision Date: 02/27/22 Decision Time: 21:34
[2022-02-27 21:34] LABS: Prothrombin Time 29.5 sec (9.0-12.0)
[2022-02-27] MEDS ORDERED: NALOXONE 0.4 MG/ML 1 ML VIAL IV PRN (21:34)
[2022-02-27] MEDS: TAMSULOSIN 0.4 MG CAP.ER.24H PO SCH (23:16)
[2022-02-28] MEDS: TAMSULOSIN 0.4 MG CAP.ER.24H PO SCH ×2 (08:01→19:38)
--- NOTE | 2022-02-28 08:42 | P.HPIM ---
History of Present Illness This is a pleasant 89 years old male with past medical history of GERD/Reflux, Osteoarthritis , benign prostatic hypertrophy, valve replacement Patient is awake and alert and states he came to the hospital because was hallucinating and not feeling well and he fell twice at home last one was yesterday, without dizziness or syncope. He has some bruising in his right elbow but denies any head trauma. No chest pain or dyspnea. No coughing. No vomiting or diarrhea. No abdominal pain. He has some hesitancy during urination but no dysuria. No headache or weakness or numbness he does not he does not remember if any new medication was started for him, however his alert awake and oriented to time, place and person Vital signs stable CBC is unremarkable. INR 3.0. Sodium 122. Creatinine is 1.0. Troponin is elevated 0.14. TSH normal 3.1. Urine analysis negative. Urine drug screen is negative. CT of the brain: Negative for acute process EKG: Atrial fibrillation's with right upper 84 patient received 1 L of normal saline in the emergency room Urine osmolality is 394 and urine sodium is 89 Review of Systems Review of systems CONSTITUTIONAL: No fever, no malaise, no fatigue. HEENT: No recent visual problems or hearing problems. Denied any sore throat. CARDIOVASCULAR: No orthopnea, PND, no palpitations, no syncope. PULMONARY: No shortness of breath, no cough, no hemoptysis. GASTROINTESTINAL: No diarrhea, no nausea, no vomiting, no abdominal pain. Normoactive bowel sounds. NEUROLOGICAL: No headaches, no weakness, no numbness. HEMATOLOGICAL: Denies any bleeding or petechiae. GENITOURINARY: Denies any burning micturition, frequency, or urgency. MUSCULOSKELETAL/RHEUMATOLOGICAL: Denies any joint pain, swelling, or any muscle pain. ENDOCRINE: Denies any polyuria or polydipsia. Past Medical History Past Medical History: GERD/Reflux, Osteoarthritis (OA), Prostate Disorder Additional Past Medical History / Comment(s): "two Leaky heart valves", valve replacement 2020 History of Any Multi-Drug Resistant Organisms: None Reported Past Surgical History: Cholecystectomy, Joint Replacement, Orthopedic Surgery Additional Past Surgical History / Comment(s): valve replacement, Rt Knee replacement; Colonoscopy, left carpal tunnel, rt cataract,JULIO C 09/15/19 Past Anesthesia/Blood Transfusion Reactions: No Reported Reaction Past Psychological History: No Psychological Hx Reported Smoking Status: Former smoker Past Alcohol Use History: Rare Additional Past Alcohol Use History / Comment(s): smoked from teens until 2010; smoked a pipe or cigar occ. Past Drug Use History: None Reported - Past Family History Father Family Medical History: Cancer Additional Family Medical History / Comment(s): stomach cancer Mother Family Medical History: Congestive Heart Failure (CHF) Sister(s) Family Medical History: Congestive Heart Failure (CHF) Medications and Allergies Home Medications Medication Instructions Recorded Confirmed Type Tamsulosin [Flomax] 0.4 mg PO BID 03/27/18 02/27/22 History Mirabegron [Myrbetriq] 50 mg PO DAILY 07/31/19 02/28/22 History Furosemide [Lasix] 40 mg PO DAILY 02/27/22 02/27/22 History Warfarin Sodium 5 mg PO MOWEFR 02/27/22 02/27/22 History Warfarin Sodium 5 mg PO SUTUTHSA 02/27/22 02/27/22 History metOLazone 2.5 mg PO MOWEFR 02/27/22 02/27/22 History Allergies Allergy/AdvReac Type Severity Reaction Status Date / Time No Known Allergies Allergy Verified 02/27/22 21:13 Physical Exam Vitals: Vital Signs Temp Pulse Pulse Resp BP BP Pulse Ox 02/28/22 07:59 98.1 F 61 18 108/58 98 02/28/22 05:00 98.4 F 73 18 103/63 99 02/28/22 03:46 18 02/27/22 22:44 97.8 F 69 18 129/78 98 02/27/22 21:44 75 16 131/85 02/27/22 20:11 78 142/100 02/27/22 17:19 97.8 F 55 L 18 131/84 98 Intake and Output 02/27/22 02/28/22 02/28/22 22:59 06:59 14:59 Other: Voiding Method Urinal # Voids 1 Weight 79.379 kg 82.4 kg -GENERAL: The patient is alert and oriented x3, not in any acute distress. Well developed, well nourished. Generally weak HEENT: Pupils are round and equally reacting to light. EOMI. No scleral icterus. No conjunctival pallor. Normocephalic, atraumatic. No pharyngeal erythema. No thyromegaly. CARDIOVASCULAR: S1 and S2 present. No murmurs, rubs, or gallops. PULMONARY: Chest is clear to auscultation, no wheezing or crackles. ABDOMEN: Soft, nontender, nondistended, normoactive bowel sounds. No palpable organomegaly. MUSCULOSKELETAL: No joint swelling or deformity. EXTREMITIES: No cyanosis, clubbing, or pedal edema. NEUROLOGICAL: Gross neurological examination did not reveal any focal deficits. SKIN: No rashes. no petechiae. Results CBC & Chem 7: 02/27/22 19:56 02/27/22 19:56 Labs: Abnormal Lab Results - Last 24 Hours (Table) 02/27/22 02/27/22 02/27/22 Range/Units 19:56 19:56 21:20 PT 29.5 H (9.0-12.0) sec INR 3.0 H (<1.2) APTT 44.0 H (22.0-30.0) sec Sodium 122 L (137-145) mmol/L Chloride 85 L (98-107) mmol/L BUN 24 H (9-20) mg/dL Osmolality (280-301) mosm/kg Troponin I 0.147 H* (0.000-0.034) ng/mL 02/27/22 Range/Units 22:19 PT (9.0-12.0) sec INR (<1.2) APTT (22.0-30.0) sec Sodium (137-145) mmol/L Chloride (98-107) mmol/L BUN (9-20) mg/dL Osmolality 260 L (280-301) mosm/kg Troponin I (0.000-0.034) ng/mL Thrombosis Risk Factor Assmnt - Choose All That Apply Any of the Below Risk Factors Present?: Yes Each Factor Represents 1 point: Obesity (BMI >25), Swollen legs (current) Other Risk Factors: Yes Each Risk Factor Represents 3 Points: Age 75 years or older Other congenital or acquired thrombophilia - If yes, enter type in comment: No Thrombosis Risk Factor Assessment Total Risk Factor Score: 5 Thrombosis Risk Factor Assessment Level: High Risk Assessment and Plan Assessment: Hyponatremia , could to be secondary to Zoloft and hypovolemia Altered mental status, secondary to metabolic encephalopathy, resolved and pa tient is back to baseline A. fib with controlled rate, on Coumadin History of valve replacement History of GERD History of osteoarthritis Benign prostatic hypertrophy Plan: This is a pleasant 89 years old male with AMS and hyponatremia Continue monitoring sodium Nephrology consult Hold Zoloft Labs and medication were reviewed.. Continue same treatment. Continue with symptomatic treatment. Resume home medication. Monitor lytes and vitals. DVT and GI prophylaxis. Further recommendations as per clinical course of the patient DVT prophylaxis: On Coumadin GI Prophylaxis: Pepcid PT/OT: Pending Prognosis is guarded
[2022-02-28 09:39] LABS: Basophils % (A) 0 %; Eosinophils # (A) 0.1 k/uL (0-0.7); Eosinophils % (A) 1 %; HCT 42.4 % (39.0-53.0); HGB 14.3 gm/dL (13.0-17.5); Lymphocytes # (A) 1.1 k/uL (1.0-4.8); Lymphocytes % (A) 18 %; MCH 32.3 pg (25.0-35.0); MCHC 33.6 g/dL (31.0-37.0); MCV 96.1 fL (80.0-100.0); Mean Platelet Volume 7.8; Monocytes # (A) 0.4 k/uL (0-1.0); Monocytes % (A) 7 %; Neutrophils # (A) 4.1 k/uL (1.3-7.7); Neutrophils % (A) 71 %; Platelet Count 224 k/uL (150-450); RBC 4.42 m/uL (4.30-5.90); RDW 12.3 % (11.5-15.5); WBC 5.8 k/uL (3.8-10.6)
[2022-02-28 09:51] LABS: Calcium 8.9 mg/dL (8.4-10.2); Magnesium 1.9 mg/dL (1.6-2.3); Potassium 3.7 mmol/L (3.5-5.1)
[2022-02-28 09:55] LABS: INR 2.7 (<1.2); Prothrombin Time 26.8 sec (9.0-12.0)
--- NOTE | 2022-02-28 10:52 | P.NPCON ---
History of Present Illness - Reason for Consult hyponatremia - History of Present Illness Patient is an 89-year-old male with past medical history of gastroesophageal reflux disease, BPH, valvular heart disease. Patient was brought into the hospital with history of mental status changes. He also felt at home prior to admission. Patient denies any significant chest pain shortness of breath lightheadedness or dizziness. He denies any previous history of hyponatremia. Serum sodium was noted to be 122. It is up to 123 today. Patient is maintained on metolazone and Lasix at home No previous hyponatremia noted on lab review. Urine osmolality at 394 with random urine sodium of 89 Status post fluid bolus in the ER. Review of Systems As per HPI Past Medical History Past Medical History: GERD/Reflux, Osteoarthritis (OA), Prostate Disorder Additional Past Medical History / Comment(s): "two Leaky heart valves", valve replacement 2020 History of Any Multi-Drug Resistant Organisms: None Reported Past Surgical History: Cholecystectomy, Joint Replacement, Orthopedic Surgery Additional Past Surgical History / Comment(s): valve replacement, Rt Knee replacement; Colonoscopy, left carpal tunnel, rt cataract,JULIO C 09/15/19 Past Anesthesia/Blood Transfusion Reactions: No Reported Reaction Past Psychological History: No Psychological Hx Reported Smoking Status: Former smoker Past Alcohol Use History: Rare Additional Past Alcohol Use History / Comment(s): smoked from teens until 2010; smoked a pipe or cigar occ. Past Drug Use History: None Reported - Past Family History Father Family Medical History: Cancer Additional Family Medical History / Comment(s): stomach cancer Mother Family Medical History: Congestive Heart Failure (CHF) Sister(s) Family Medical History: Congestive Heart Failure (CHF) Medications and Allergies Home Medications Medication Instructions Recorded Confirmed Type Tamsulosin [Flomax] 0.4 mg PO BID 03/27/18 02/27/22 History Mirabegron [Myrbetriq] 50 mg PO DAILY 07/31/19 02/28/22 History Furosemide [Lasix] 40 mg PO DAILY 02/27/22 02/27/22 History Warfarin Sodium 5 mg PO MOWEFR 02/27/22 02/27/22 History Warfarin Sodium 5 mg PO SUTUTHSA 02/27/22 02/27/22 History metOLazone 2.5 mg PO MOWEFR 02/27/22 02/27/22 History Allergies Allergy/AdvReac Type Severity Reaction Status Date / Time No Known Allergies Allergy Verified 02/27/22 21:13 Physical Exam Vitals: Vital Signs Temp Pulse Pulse Resp BP BP Pulse Ox 02/28/22 07:59 98.1 F 61 18 108/58 98 02/28/22 05:00 98.4 F 73 18 103/63 99 02/28/22 03:46 18 02/27/22 22:44 97.8 F 69 18 129/78 98 02/27/22 21:44 75 16 131/85 02/27/22 20:11 78 142/100 02/27/22 17:19 97.8 F 55 L 18 131/84 98 Intake and Output 02/27/22 02/28/22 02/28/22 22:59 06:59 14:59 Output Total 200 Balance -200 Output: Urine 200 Other: Voiding Method Urinal Urinal # Voids 1 Weight 79.379 kg 82.4 kg Awake, comfortable, not in any acute distress Examination of the heart S1 and S2 Examination of the lungs bilateral breath sounds are heard Abdomen is soft nontender Examination of the lower extremities shows trace edema [employer] exam grossly intact Results - Lab Results Most recent lab results Calcium 8.9 mg/dL (8.4-10.2) 02/28/22 08:41 Magnesium 1.9 mg/dL (1.6-2.3) 02/28/22 08:41 02/28/22 08:41 02/28/22 08:41 Assessment and Plan Assessment: 1. Hyponatremia most likely hypovolemic. Patient was maintained on metolazone which is thiazide-like diuretic. This can worsen the hyponatremia. I will challenge with normal saline and recheck sodium this afternoon. Urine osmolality at 394 and random urine sodium at 89. 2. Mental status changes most likely related to underlying electrolyte imbalance 3. Chronic A. fib with controlled ventricular response 4. Valvular heart disease status post valve replacement, details not known Plan: Challenge with normal saline. Repeat sodium this afternoon Patient is encouraged to increase oral intake particularly protein Hold Lasix and metolazone for now. Thank you for the consultation. We'll continue to follow the patient with you during his hospitalization
[2022-02-28] MEDS ORDERED: SODIUM CHLORIDE 0.9% 1,000 ML IV SCH (11:00)
[2022-02-28] MEDS: WARFARIN 5 MG TAB PO SCH (17:04)
[2022-02-28] MEDS ORDERED: WARFARIN 5 MG TAB PO SCH (18:00)
[2022-02-28] MEDS ORDERED: TOLVAPTAN 15 MG 1/2 TABLET PO ONE (22:55)
[2022-03-01 06:55] LABS: INR 2.2 (<1.2)
[2022-03-01 07:00] LABS: Potassium 3.8 mmol/L (3.5-5.1)
[2022-03-01] MEDS ORDERED: TOLVAPTAN 15 MG 1/2 TABLET PO ONE (09:20)
[2022-03-01] MEDS: FAMOTIDINE 20 MG/2 ML VIAL IV SCH ×2 (09:22→19:39)
[2022-03-01] MEDS: TAMSULOSIN 0.4 MG CAP.ER.24H PO SCH ×2 (09:22→19:39)
--- NOTE | 2022-03-01 09:41 | P.PN ---
Subjective Patient is seen in follow-up for hyponatremia. Sodium level 124 today. Received Samsca yesterday. Oral intake fair. No vomiting or diarrhea. Has been voiding. GFR at baseline. Vital signs stable. General: No acute distress. HEENT: Head exam is unremarkable. LUNGS: Breath sounds decreased. HEART: Rate and Rhythm are regular. ABDOMEN: Soft, no distention. EXTREMITITES: No edema. Objective - Vital Signs Vital signs: Vital Signs Temp 97.6 F 03/01/22 08:00 Pulse 75 03/01/22 08:00 Resp 18 03/01/22 08:00 BP 128/68 03/01/22 08:00 Pulse Ox 95 03/01/22 08:00 FiO2 Intake & Output 02/28/22 03/01/22 03/01/22 18:59 06:59 18:59 Intake Total 240 Output Total 450 Balance -210 Weight 82.6 kg Intake: Oral 240 Output: Urine 450 Other: Voiding Method Urinal Urinal Toilet # Voids 3 - Labs CBC & Chem 7: 02/28/22 08:41 03/01/22 06:22 Labs: Abnormal Lab Results - Last 24 Hours (Table) 02/28/22 02/28/22 02/28/22 Range/Units 08:41 08:41 15:40 PT 26.8 H (9.0-12.0) sec INR 2.7 H (<1.2) Sodium 123 L 120 L (137-145) mmol/L Chloride 86 L (98-107) mmol/L Carbon Dioxide 31 H (22-30) mmol/L Glucose 130 H (74-99) mg/dL 02/28/22 03/01/22 03/01/22 Range/Units 22:16 06:22 06:22 PT 22.0 H (9.0-12.0) sec INR 2.2 H (<1.2) Sodium 121 L 124 L (137-145) mmol/L Chloride 87 L (98-107) mmol/L Carbon Dioxide (22-30) mmol/L Glucose (74-99) mg/dL Assessment and Plan Plan: Assessment: 1. Hyponatremia. Due to metolazone with component of SIADH. Urine osmolality 394 and urine sodium 89. Denies history of malignancy. TSH normal. 2. BPH on Flomax. 3. A. fib maintained on Coumadin. Plan: Add 1200 mL fluid restriction. Repeat sample 7.5 mg once today. Continue to hold diuretics. Repeat labs in the morning.
--- NOTE | 2022-03-01 10:13 | P.PN ---
Subjective This is a pleasant 89 years old male with past medical history of GERD/Reflux, Osteoarthritis , benign prostatic hypertrophy, valve replacement Patient is awake and alert and states he came to the hospital because was hallucinating and not feeling well and he fell twice at home last one was yesterday, without dizziness or syncope. He has some bruising in his right elbow but denies any head trauma. No chest pain or dyspnea. No coughing. No vomiting or diarrhea. No abdominal pain. He has some hesitancy during urination but no dysuria. No headache or weakness or numbness he does not he does not remember if any new medication was started for him, however his alert awake and oriented to time, place and person Vital signs stable CBC is unremarkable. INR 3.0. Sodium 122. Creatinine is 1.0. Troponin is elevated 0.14. TSH normal 3.1. Urine analysis negative. Urine drug screen is negative. CT of the brain: Negative for acute process EKG: Atrial fibrillation's with right upper 84 patient received 1 L of normal saline in the emergency room Urine osmolality is 394 and urine sodium is 89 Objective - Vital Signs Vital signs: Vital Signs Temp 97.6 F 03/01/22 08:00 Pulse 75 03/01/22 08:00 Resp 18 03/01/22 08:00 BP 128/68 03/01/22 08:00 Pulse Ox 95 03/01/22 08:00 FiO2 Intake & Output 02/28/22 03/01/22 03/01/22 18:59 06:59 18:59 Intake Total 240 Output Total 450 Balance -210 Weight 82.6 kg Intake: Oral 240 Output: Urine 450 Other: Voiding Method Urinal Urinal Toilet # Voids 3 - Exam GENERAL: The patient is alert and oriented x3, not in any acute distress. Well developed, well nourished. HEENT: Pupils are round and equally reacting to light. EOMI. No scleral icterus. No conjunctival pallor. Normocephalic, atraumatic. No pharyngeal erythema. No thyromegaly. CARDIOVASCULAR: S1 and S2 present. No murmurs, rubs, or gallops. PULMONARY: Chest is clear to auscultation, no wheezing or crackles. ABDOMEN: Soft, nontender, nondistended, normoactive bowel sounds. No palpable organomegaly. MUSCULOSKELETAL: No joint swelling or deformity. EXTREMITIES: No cyanosis, clubbing, or pedal edema. NEUROLOGICAL: Gross neurological examination did not reveal any focal deficits. SKIN: No rashes. no petechiae. - Labs CBC & Chem 7: 02/28/22 08:41 03/01/22 06:22 Labs: Abnormal Lab Results - Last 24 Hours (Table) 02/28/22 02/28/22 02/28/22 Range/Units 08:41 08:41 15:40 PT 26.8 H (9.0-12.0) sec INR 2.7 H (<1.2) Sodium 123 L 120 L (137-145) mmol/L Chloride 86 L (98-107) mmol/L Carbon Dioxide 31 H (22-30) mmol/L Glucose 130 H (74-99) mg/dL 02/28/22 03/01/22 03/01/22 Range/Units 22:16 06:22 06:22 PT 22.0 H (9.0-12.0) sec INR 2.2 H (<1.2) Sodium 121 L 124 L (137-145) mmol/L Chloride 87 L (98-107) mmol/L Carbon Dioxide (22-30) mmol/L Glucose (74-99) mg/dL Assessment and Plan Assessment: Hyponatremia , could to be secondary to Zoloft (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 fib with controlled rate, on Coumadin History of valve replacement History of GERD History of osteoarthritis Benign prostatic hypertrophy Plan: This is a pleasant 89 years old male with AMS and hyponatremia Continue monitoring sodium Nephrology consult, pt is s/p samsca yesterday and today Hold Zoloft, hold Lasix and metolazone Labs and medication were reviewed.. Continue same treatment. Continue with symptomatic treatment. Resume home medication. Monitor lytes and vitals. DVT and GI prophylaxis. Further recommendations as per clinical course of the patient DVT prophylaxis: On Coumadin GI Prophylaxis: Pepcid PT/OT: Pending Prognosis is guarded
[2022-03-01] MEDS ORDERED: WARFARIN 5 MG TAB PO SCH (18:00)
[2022-03-01] MEDS: WARFARIN 5 MG TAB PO SCH (18:15)
[2022-03-02 05:31] LABS: INR 1.9 (<1.2); Prothrombin Time 19.2 sec (9.0-12.0)
[2022-03-02 05:48] LABS: Calcium 9.4 mg/dL (8.4-10.2); Magnesium 2.2 mg/dL (1.6-2.3)
--- NOTE | 2022-03-02 10:33 | P.PN ---
Subjective Patient is seen for follow-up for hyponatremia. He has received a couple of doses of Samsca. Sodium is up to 133 today from 124 yesterday Urine osmolality 394 and urine sodium was 89 Diuretics on hold Good urine output, 3.2 L for 24 hours documented Blood pressure is not low Objective - Vital Signs Vital signs: Vital Signs Temp 97.9 F 03/02/22 00:00 Pulse 95 03/02/22 08:15 Resp 16 03/02/22 08:15 BP 125/68 03/02/22 08:15 Pulse Ox 99 03/02/22 08:15 FiO2 Intake & Output 03/01/22 03/02/22 03/02/22 18:59 06:59 18:59 Intake Total 540 120 Output Total 1800 1400 Balance -1260 -1400 120 Intake: Oral 540 120 Output: Urine 1800 1400 Other: Voiding Method Toilet Toilet # Voids 1 - Exam Awake, comfortable, not in any acute distress Examination of the heart S1 and S2 Examination of the lungs bilateral breath sounds are heard Abdomen is soft nontender Examination of the lower extremity shows edema 1+ lower extremities mostly in the ankles WAITSTAFF exam grossly intact - Labs CBC & Chem 7: 02/28/22 08:41 03/02/22 04:56 Labs: Abnormal Lab Results - Last 24 Hours (Table) 03/02/22 03/02/22 Range/Units 04:56 04:56 PT 19.2 H (9.0-12.0) sec INR 1.9 H (<1.2) Sodium 133 L (137-145) mmol/L Chloride 97 L (98-107) mmol/L Carbon Dioxide 33 H (22-30) mmol/L Assessment and Plan Assessment: 1. Hyponatremia, hypervolemic. Status post couple of doses of Samsca. Sodium increased about 10 points from yesterday. I will check another sodium at known and if it continues to increase patient will be started on D5W. Continue off of diuretics for now. We can likely resume loop diuretics at the time of discharge. 2. Mental status changes most likely related to underlying electrolyte imbalance, improved from admission 3. Chronic A. fib with controlled ventricular response 4. 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
[2022-03-02] MEDS: TAMSULOSIN 0.4 MG CAP.ER.24H PO SCH ×2 (10:45→21:18)
[2022-03-02] MEDS: FAMOTIDINE 20 MG/2 ML VIAL IV SCH (10:45)
[2022-03-02] MEDS ORDERED: LORazepam 2 MG/ML INJ IV STA (15:20)
[2022-03-02] MEDS: WARFARIN 5 MG TAB PO SCH (17:40)
[2022-03-02] MEDS: FAMOTIDINE 20 MG TAB PO SCH (21:19)
[2022-03-02] MEDS: QUEtiapine 25 MG TAB PO SCH (21:19)
--- NOTE | 2022-03-02 23:32 | P.PN ---
Progress Note - Text Progress Note Date: 03/02/22 Hospital course: This is a pleasant 89 years old male with past medical history of GERD/Reflux, Osteoarthritis , benign prostatic hypertrophy, valve replacement Patient is awake and alert and states he came to the hospital because was hallucinating and not feeling well and he fell twice at home last one was yesterday, without dizziness or syncope. He has some bruising in his right elbow but denies any head trauma. No chest pain or dyspnea. No coughing. No vomiting or diarrhea. No abdominal pain. He has some hesitancy during urination but no dysuria. No headache or weakness or numbness he does not he does not remember if any new medication was started for him, however his alert awake and oriented to time, place and person Patient admitted with metabolic encephalopathy. From hyponatremia, hypervolemic. Zoloft) diuretics were discontinued. Patient received Samsca March 02: Patient's and daughter the bedside. Patient continues to have visual hallucinations. He felt that most was inside the toolbox. He saw steam coming out of the wall. He thought his hair cream was sitting out of the cabinet in the hallway. After lengthy discussion with them I decided to put the patient on 12.5 mg of Seroquel at night. Active Medications Famotidine (Famotidine 20 Mg Tab) 20 mg PO BID [facility] Last Admin: 03/02/22 21:19 Dose: 20 mg Miscellaneous Information (Warfarin Per Pharmacy) 0 each MISCELLANE DIRECTED PRN PRN Reason: PER PROTOCOL Naloxone HCl (Naloxone 0.4 Mg/Ml 1 Ml Vial) 0.2 mg IV Q2M PRN PRN Reason: Opioid Reversal Quetiapine Fumarate (Quetiapine 25 Mg Tab) 12.[address] [facility] Last Admin: 03/02/22 21:19 Dose: 12.5 mg Tamsulosin HCl (Tamsulosin 0.4 Mg Cap.Er.24h) 0.4 mg PO BID [facility] Last Admin: 03/02/22 21:18 Dose: 0.4 mg Warfarin Sodium (Warfarin 5 Mg Tab) 5 mg PO DAILY@1800 [facility] Last Admin: 03/02/22 17:40 Dose: 5 mg On examination: VITAL SIGNS: [Afebrile, 91, 16, 1 20 x 80, 97% room air] GENERAL APPEARANCE: Sitting up in a chair, awake, comfortable HEENT: Normal external appearance of nose and ear. Oral cavity normal, hard of hearing EYES: Pupils equal. Conjunctiva normal. NECK: JVD not raised. Mass not palpable. RESPIRATORY: Respiratory effort normal. Lungs clear to auscultation. CARDIOVASCULAR: First and second sounds normal. No edema. ABDOMEN: Soft. Liver and spleen not palpable. No tenderness. No mass palpable. PSYCHIATRY: Alert and oriented x3. Mood and affect normal. 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 Zoloft discontinued. Diuretics discontinued. -Altered mental status, secondary to metabolic encephalopathy, from hyponatremia. -Persistent A. fib with controlled rate, On Coumadin -History of valve replacement -GERD Maalox when necessary -Primary osteoarthritis Tylenol as needed -Benign prostatic hypertrophy Flomax -Visual hallucinations, uncontrolled Patient has not slept well for last few nights. We'll start Seroquel. -Full code Discussed at length with the patient and and the daughter the bedside. Start patient on Seroquel at night. Sleep hygiene discussed. Psychiatry consulted. Total time spent today about 45 minutes with over 25 minutes of discussion.
[2022-03-03] MEDS: FAMOTIDINE 20 MG TAB PO SCH ×2 (07:56→19:50)
[2022-03-03] MEDS: TAMSULOSIN 0.4 MG CAP.ER.24H PO SCH ×2 (07:56→19:50)
[2022-03-03 08:11] LABS: INR 1.9 (<1.2); Prothrombin Time 18.8 sec (9.0-12.0)
--- NOTE | 2022-03-03 14:19 | P.PN ---
Subjective Progress Note Date: 03/03/22 Workup for hyponatremia. No new labs today. Denies any nausea vomiting diarrhea. Family at bedside. Objective - Vital Signs Vital signs: Vital Signs Temp 97.7 F 03/03/22 11:40 Pulse 74 03/03/22 11:40 Resp 16 03/03/22 11:40 BP 111/71 03/03/22 11:40 Pulse Ox 97 03/03/22 11:40 FiO2 Intake & Output 03/02/22 03/03/22 03/03/22 18:59 06:59 18:59 Intake Total 360 970 Balance 360 970 Intake: Oral 360 970 Other: Voiding Method Urinal Urinal # Voids 1 1 # Bowel Movements 1 - Exam Acute distress S1-S2 heard Decreased breath sounds No edema - Labs CBC & Chem 7: 02/28/22 08:41 03/02/22 11:39 Labs: Abnormal Lab Results - Last 24 Hours (Table) 03/03/22 Range/Units 07:13 PT 18.8 H (9.0-12.0) sec INR 1.9 H (<1.2) Assessment and Plan Assessment: #1 hypervolemic hyponatremia status post Samsca #2 encephalopathy better #3 chronic A. fib #4 valvular heart disease status post valve replacement Plan: #1 no new labs today. Sodium yesterday 132. #2 check labs in the morning. #3 currently not on fluids or diuretics.
--- NOTE | 2022-03-03 16:43 | P.CN ---
Psychiatric Consult - . Consult date: 03/03/22 Consult:: 03/03/22 16:24 I talked to the patient and to his daughter. The patient is clearly suffering from significant dementia. He has hallucinations as described sound more organic then psychiatric hallucinations. They could have been triggered in part by the Zoloft in part by the electrolyte imbalance. His daughter said he was also placed on something that ended in ZONE if it was any kind of a steroid that also could've contributed. He was placed on 12.5 of Seroquel and has been getting some sleep as a result and seems to be doing much better in terms of hallucinating. (It should be noted that Seroquel usually only lasts about 14 hours but if you use it during the day he would be too lethargic. Also any kind of antipsychotic in a person with dementia increases the risk of cardiac problems. However the dose is very modest. If he starts having hallucinations again toward evening one might change release manager to a time release and take it 3 hours before desired bedtime. (I don't believe this is on the formulary) Coming off the Zoloft and getting electrolytes straightened out may be adequate and he may not need antipsychotic medications long-term. Fortunately Seroquel works fast and quits fast and once he is doing well for a while, he should probably be tried without it. Mental status exam: Patient is clearly disoriented as to time of day he thought he been sleeping for 4 hours and it was about 1-1/2. I gave him 3 things to remember and he could only remember 2 on immediate recall after 2 tries and none after 3 minutes. He tends to confabulate. When his daughter came in I asked him who this was instead of saying, "my daughter" and introducing me, he says, " she's my mouthpiece". When asked to move the president was he remembers first name was Edvin but not as last name and he had no idea who the previous president was. When I asked him the name the [place] he said he has lived in [place] for his whole life but he could only remember [facility]. He could subtract 7 from 10 slowly but could not subtract 7 from 100. When asked him to spell world he said WOULD. When asked him how cats and snakes were alike he repeated the question to try to register at and then said they both had temper when asked him if there was anything else he had forgotten the question. When asked him to apply the proverb, "the grass looks greener on the other side of the fence." He said, "don't be impertinent". Assessment: I think he had organic hallucinations from multiple causes. 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 03/03/22 16:39
[2022-03-03 17:16] VITALS: RESP 18
--- NOTE | 2022-03-03 17:32 | P.PN ---
Progress Note - Text Progress Note Date: 03/03/22 Hospital course: This is a pleasant 89 years old male with past medical history of GERD/Reflux, Osteoarthritis , benign prostatic hypertrophy, valve replacement Patient is awake and alert and states he came to the hospital because was hallucinating and not feeling well and he fell twice at home last one was yesterday, without dizziness or syncope. He has some bruising in his right elbow but denies any head trauma. No chest pain or dyspnea. No coughing. No vomiting or diarrhea. No abdominal pain. He has some hesitancy during urination but no dysuria. No headache or weakness or numbness he does not he does not remember if any new medication was started for him, however his alert awake and oriented to time, place and person Patient admitted with metabolic encephalopathy. From hyponatremia, hypervolemic. Zoloft) diuretics were discontinued. Patient received Samsca March 02: Patient's and daughter the bedside. Patient continues to have visual hallucinations. He felt that most was inside the toolbox. He saw steam coming out of the wall. He thought his hair cream was sitting out of the cabinet in the hallway. After lengthy discussion with them I decided to put the patient on 12.5 mg of Seroquel at night. March 03: Patient did well with Seroquel. Slept well last night. Hallucinations much better. Oral intake good. Patient's and other daughter present. Seen by psychiatry. Underlying dementia. Active Medications Famotidine (Famotidine 20 Mg Tab) 20 mg PO BID [facility] Last Admin: 03/03/22 07:56 Dose: 20 mg Miscellaneous Information (Warfarin Per Pharmacy) 0 each MISCELLANE DIRECTED PRN PRN Reason: PER PROTOCOL Naloxone HCl (Naloxone 0.4 Mg/Ml 1 Ml Vial) 0.2 mg IV Q2M PRN PRN Reason: Opioid Reversal Quetiapine Fumarate (Quetiapine 25 Mg Tab) 12.5 mg PO [facility] Last Admin: 03/02/22 21:19 Dose: 12.5 mg Tamsulosin HCl (Tamsulosin 0.4 Mg Cap.Er.24h) 0.4 mg PO BID [facility] Last Admin: 03/03/22 07:56 Dose: 0.4 mg Warfarin Sodium (Warfarin 3 Mg Tab) 6 mg PO ONCE@1800 ONE Stop: 03/03/22 18:01 Last Admin: 03/03/22 17:03 Dose: 6 mg On examination: VITAL SIGNS: 97.7, 74, 16, 111/71, 97% room air GENERAL APPEARANCE: Sitting up in a chair, awake, comfortable HEENT: Normal external appearance of nose and ear. Oral cavity normal, hard of hearing EYES: Pupils equal. Conjunctiva normal. NECK: JVD not raised. Mass not palpable. RESPIRATORY: Respiratory effort normal. Lungs clear to auscultation. CARDIOVASCULAR: First and second sounds normal. No edema. ABDOMEN: Soft. Liver and spleen not palpable. No tenderness. No mass palpable. PSYCHIATRY: Alert and oriented x3. Mood and affect normal. 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 Zoloft discontinued. Diuretics discontinued. -Altered mental status, secondary to metabolic encephalopathy, from hyponatremia.: Better -Persistent A. 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 Watch another 24 hours.
[2022-03-03] MEDS ORDERED: WARFARIN 3 MG TAB PO ONE (18:00)
[2022-03-03] MEDS: QUEtiapine 25 MG TAB PO SCH (19:50)
[2022-03-04 07:48] LABS: Prothrombin Time 20.1 sec (9.0-12.0)
[2022-03-04 07:53] LABS: Calcium 9.1 mg/dL (8.4-10.2); Potassium 4.5 mmol/L (3.5-5.1)
[2022-03-04] MEDS: TAMSULOSIN 0.4 MG CAP.ER.24H PO SCH (08:41)
[2022-03-04] MEDS: FAMOTIDINE 20 MG TAB PO SCH (08:41)
[2022-03-04 12:02] VITALS: BP 127/85; PULSE 84; TEMP 97.4
--- NOTE | 2022-03-04 12:59 | P.PN ---
Subjective Progress Note Date: 03/04/22 Follow-up for hyponatremia. Family at bedside. Denies nausea vomiting diarrhea, eating lunch Objective - Vital Signs Vital signs: Vital Signs Temp 97.4 F L 03/04/22 11:53 Pulse 84 03/04/22 11:53 Resp 18 03/04/22 11:53 BP 127/85 03/04/22 11:53 Pulse Ox 100 03/04/22 11:53 FiO2 Intake & Output 03/03/22 03/04/22 03/04/22 18:59 06:59 18:59 Intake Total 970 360 Balance 970 360 Intake: Oral 970 360 Other: Voiding Method Urinal Urinal # Voids 1 # Bowel Movements 1 - Exam Acute distress S1-S2 heard Decreased breath sounds No edema - Labs CBC & Chem 7: 02/28/22 08:41 03/04/22 06:50 Labs: Abnormal Lab Results - Last 24 Hours (Table) 03/04/22 03/04/22 Range/Units 06:50 06:50 PT 20.1 H (9.0-12.0) sec INR 2.0 H (<1.2) Sodium 136 L (137-145) mmol/L Carbon Dioxide 31 H (22-30) mmol/L BUN 23 H (9-20) mg/dL Assessment and Plan Assessment: #1 hypervolemic hyponatremia status post Samsca #2 encephalopathy better #3 chronic A. fib #4 valvular heart disease status post valve replacement Plan: #1 renal function stable, back to baseline. #2 add torsemide 10 mg by mouth daily #3 stable from nephrology for discharge to be followed up in the office in 2 weeks
--- NOTE | 2022-03-04 13:58 | P.PN ---
Subjective Progress Note Date: 03/04/22 Principal diagnosis: Dementia Organic hallucinations I talked to the nurse to the into the patient. Everybody agrees that he has been sleeping better and the hallucinations are vanished and it does correlate with when the Seroquel low dose was begun. Objective he seems more alert having slept well last night and sense of humor and talkative he still does some confabulating and has memory issues. But he is pleasant and denies any depression or any psychotic symptoms. Assessment the risk at 12.5 of Seroquel is extremely low and it seems to be helping side think the benefit outweighs the risk or recommend continuation of that at least for the next week or 2 when then attempt to withdraw and see if he does okay I am the weekend psychiatrist, and cover for the regular ones if you want further evaluation let us know otherwise psychiatry of be signing off Objective - Vital Signs Vital signs: Vital Signs Temp 97.4 F L 03/04/22 11:53 Pulse 84 03/04/22 11:53 Resp 18 03/04/22 11:53 BP 127/85 03/04/22 11:53 Pulse Ox 100 03/04/22 11:53 FiO2 Intake & Output 03/03/22 03/04/22 03/04/22 18:59 06:59 18:59 Intake Total 970 360 Balance 970 360 Intake: Oral 970 360 Other: Voiding Method Urinal Urinal # Voids 1 # Bowel Movements 1 - Labs CBC & Chem 7: 02/28/22 08:41 03/04/22 06:50 Labs: Abnormal Lab Results - Last 24 Hours (Table) 03/04/22 03/04/22 Range/Units 06:50 06:50 PT 20.1 H (9.0-12.0) sec INR 2.0 H (<1.2) Sodium 136 L (137-145) mmol/L Carbon Dioxide 31 H (22-30) mmol/L BUN 23 H (9-20) mg/dL
[2022-03-04] MEDS ORDERED: WARFARIN 5 MG TAB PO ONE (18:00)
--- NOTE | 2022-03-04 18:17 | P.DS ---
Providers Date of admission: 02/27/22 21:35 Expected date of discharge: 03/04/22 Attending physician: Alexander Agarwal Consults: 02/27/22 21:45 Consult Physician Urgent Consulting Provider: Sakina Poon Consult Reason/Comments: hyponatremia Do you want consulting provider notified?: Yes 03/02/22 15:21 Consult Physician Urgent Consulting Provider: Zane Dao Reason/Comments: confusion Do you want consulting provider notified?: Already Contacted Primary care physician: Naresh T[facility] Course: Hospital course: This is a pleasant 89 years old male with past medical history of GERD/Reflux, Osteoarthritis , benign prostatic hypertrophy, valve replacement Patient is awake and alert and states he came to the hospital because was hallucinating and not feeling well and he fell twice at home last one was yesterday, without dizziness or syncope. He has some bruising in his right elbow but denies any head trauma. No chest pain or dyspnea. No coughing. No vomiting or diarrhea. No abdominal pain. He has some hesitancy during urination but no dysuria. No headache or weakness or numbness he does not he does not remember if any new medication was started for him, however his alert awake and oriented to time, place and person Patient admitted with metabolic encephalopathy. From hyponatremia, hypervolemic. Zoloft) diuretics were discontinued. Patient received Samsca March 02: Patient's and daughter the bedside. Patient continues to have visual hallucinations. He felt that most was inside the toolbox. He saw steam coming out of the wall. He thought his hair cream was sitting out of the cabinet in the hallway. After lengthy discussion with them I decided to put the patient on 12.5 mg of Seroquel at night. March 03: Patient did well with Seroquel. Slept well last night. Hallucinations much better. Oral intake good. Patient's and other daughter present. Seen by psychiatry. Underlying dementia. March 04: Sitting up. Doing well. Hallucinations the result. Slept well last night. Discussed with at the bedside. Follow-up with PCP. Fluid restriction 1800 mL daily. Discussion and discharge planning more than 35 minutes On examination: VITAL SIGNS: 97.7, 74, 16, 111/71, 97% room air GENERAL APPEARANCE: Sitting up in a chair, awake, comfortable HEENT: Normal external appearance of nose and ear. Oral cavity normal, hard of hearing EYES: Pupils equal. Conjunctiva normal. NECK: JVD not raised. Mass not palpable. RESPIRATORY: Respiratory effort normal. Lungs clear to auscultation. CARDIOVASCULAR: First and second sounds normal. No edema. ABDOMEN: Soft. Liver and spleen not palpable. No tenderness. No mass palpable. PSYCHIATRY: Alert and oriented x3. Mood and affect normal. 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 Zoloft discontinued. Fluid restriction 1800 mL -Altered mental status, secondary to metabolic encephalopathy, from hyponatremia.: Better -Persistent A. 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 -Full code Disposition: Home Plan - Discharge Summary Discharge Rx Participant: No New Discharge Prescriptions: New Torsemide [Demadex] 10 mg PO DAILY #30 tab Famotidine [Pepcid] 20 mg PO BID #60 tab QUEtiapine [SEROquel] 12.5 mg PO HS #30 tab Continue Tamsulosin [Flomax] 0.4 mg PO BID Mirabegron [Myrbetriq] 50 mg PO DAILY Warfarin Sodium 5 mg PO MOWEFR Warfarin Sodium 5 mg PO SUTUTHSA Discontinued metOLazone 2.5 mg PO MOWEFR Furosemide [Lasix] 40 mg PO DAILY Discharge Medication List Tamsulosin [Flomax] 0.4 mg PO BID 03/27/18 [History] Mirabegron [Myrbetriq] 50 mg PO DAILY 07/31/19 [History] Warfarin Sodium 5 mg PO MOWEFR 02/27/22 [History] Warfarin Sodium 5 mg PO SUTUTHSA 02/27/22 [History] Famotidine [Pepcid] 20 mg PO BID #60 tab 03/04/22 [Rx] QUEtiapine [SEROquel] 12.5 mg PO HS #30 tab 03/04/22 [Rx] Torsemide [Demadex] 10 mg PO DAILY #30 tab 03/04/22 [Rx] Follow up Appointment(s)/Referral(s): Naresh Browning DO [Primary Care Provider] - 1-2 days [facility] Vis[facility] Nurse, [NON-STAFF] - 1-2 Days Patient Instructions/Handouts: Hyponatremia (DC), Hallucinations (DC) Activity/Diet/Wound Care/Special Instructions: fluid restriction 1800 cc/day Discharge Disposition: HOME SELF-CARE
[2022-03-05] MEDS ORDERED: TORSEMIDE 20 MG TAB PO SCH (09:00)
== END 2022-03-04 15:50 | disposition home or self-care (01) | DRG 643 ==
LOC: EC 16:58 → 3SCARD 21:35
PROVIDERS: ADMIT Hospitalist; ATTEND Hospitalist
DX: E22.2 Syndrome of inappropriate secretion of antidiuretic hormone (principal); G93.41 Metabolic encephalopathy; I48.19 Other persistent atrial fibrillation; G30.9 Alzheimer's disease, unspecified; F02.80 Dementia in other diseases classified elsewhere, unspecified severity, without behavioral disturbance, psychotic disturbance, mood disturbance, and anxiety; E87.8 Other disorders of electrolyte and fluid balance, not elsewhere classified; E86.1 Hypovolemia; E87.70 Fluid overload, unspecified; R60.0 Localized edema; Z96.651 Presence of right artificial knee joint; W19.XXXA Unspecified fall, initial encounter; S50.01XA Contusion of right elbow, initial encounter; N40.1 Benign prostatic hyperplasia with lower urinary tract symptoms; R39.11 Hesitancy of micturition; R77.8 Other specified abnormalities of plasma proteins; T43.225A Adverse effect of selective serotonin reuptake inhibitors, initial encounter; K21.9 Gastro-esophageal reflux disease without esophagitis; H91.90 Unspecified hearing loss, unspecified ear; M19.91 Primary osteoarthritis, unspecified site; Z95.2 Presence of prosthetic heart valve; Z79.01 Long term (current) use of anticoagulants; Z79.899 Other long term (current) drug therapy; Z87.891 Personal history of nicotine dependence; Z90.49 Acquired absence of other specified parts of digestive tract; Z98.41 Cataract extraction status, right eye; Z98.890 Other specified postprocedural states; Z80.0 Family history of malignant neoplasm of digestive organs; Z82.49 Family history of ischemic heart disease and other diseases of the circulatory system
CPT/HCPCS: 36415; 70450; 71046; 80048; 80051; 80053; 80306; 81003; 82140; 83735; 83930; 83935; 84295; 84300; 84443; 84484; 85025; 85610; 85730; 93005; 99285

== ENCOUNTER → 2022-05-04 | Outpatient (CLI) | payer MEDICARE ==
[2022-05-04 14:15] LABS: ALT 21 U/L (4-49); AST 33 U/L (17-59); African American GFR (CKD) 63 (>60 ml/min/1.73 sqM); Albumin/Globulin Ratio 1.4; Alkaline Phosphatase 88 U/L (38-126); Anion Gap 8 mmol/L; Blood Urea Nitrogen 32 mg/dL (9-20); Calcium 9.3 mg/dL (8.4-10.2); Carbon Dioxide 29 mmol/L (22-30); Chloride 99 mmol/L (98-107); Globulin 2.8 g/dL; Glucose 103 mg/dL (74-99); Non-African American GFR(CKD) 54 (>60 ml/min/1.73 sqM); Potassium 4.8 mmol/L (3.5-5.1); Sodium 136 mmol/L (137-145); Total Bilirubin 0.6 mg/dL (0.2-1.3); Total Protein 6.8 g/dL (6.3-8.2)
== END | disposition home or self-care (01) ==
LOC: LABWHC1 13:10
PROVIDERS: ATTEND Internal Medicine Interventional Cardiology
DX: R06.09 Other forms of dyspnea (principal); R60.0 Localized edema
CPT/HCPCS: 36415; 80053; 83880